=== PATIENT | male | born 1960 | race African-American/Black ===

== ENCOUNTER 2018-03-30 12:39 | Emergency (ER) | payer OTHER ==
[2018-03-30 13:12] LABS: #Basophils 0.1 thou/uL (0.0-0.2); #Eosinphils 0.1 thou/uL (0.0-0.7); #Lymphocytes 2.1 thou/uL (1.20-3.40); #Monocytes 0.5 thou/uL (0.11-0.59); #Neutrophils 2.6 thou/uL (1.40-6.50); %Eosinophils 1.7 % (0.0-10.0); %Lymphocytes 39.2 % (21.0-51.0); %Monocytes 9.5 % (0.0-10.0); %Neutrophils 48.6 % (42.0-75.0); Hemoglobin 14.4 g/dL (14.0-18.0); Mean Corpuscular HGB CONC 33.2 g/dL (32.0-36.0); Mean Corpuscular Hemoglobin 31.5 pg (27.0-31.0); Mean Corpuscular Volume 94.9 fl (80.0-94.0); Mean Platelet Volume 7.6 fL (7.4-10.4); Platelet Count 232 thou/uL (130-400); RBC Distribution Width 13.6 % (11.5-14.5); Red Blood Cell (RBC) Count 4.57 mill/uL (4.70-6.10); White Blood Cell (WBC) Count 5.4 thou/uL (4.8-10.8)
--- NOTE | 2018-03-30 13:34 | RAD ---
CHEST 1 VIEW: Date: 03/30/18 HISTORY: Chest pain. COMPARISON: 06/15/15. FINDINGS: Cardiac silhouette and pulmonary vasculature are unremarkable. Mediastinum is midline with aortic jeri cification. Calcified lesions within the left lung are stable. There is no confluent air space consol idation or evidence of pneumothorax. IMPRESSION: No active cardiopulmonary abnormalities are demonstrated. POS: [facility]
[2018-03-30 13:35] LABS: ALT (SGPT) 23 U/L (8-55); AST (SGOT) 21 U/L (5-34); Albumin 4.3 g/dL (3.5-5.0); Alkaline Phosphatase 43 U/L (40-150); Anion Gap 10 mmol/L (10-20); BUN (Urea Nitrogen) 16 mg/dL (8.4-25.7); Bilirubin, Total 0.4 mg/dL (0.2-1.2); Calc. Creatinine Clearance 0 mL/min (70-130); Calcium 9.2 mg/dL (7.8-10.44); Carbon Dioxide 27 mmol/L (22-29); Chloride 102 mmol/L (98-107); Estimated GFR-MDRD 86; Globulin 3.4 g/dL (2.4-3.5); Glucose 108 mg/dL (70-105); Potassium 4.5 mmol/L (3.5-5.1); Protein, Total 7.7 g/dL (6.0-8.3); Sodium 134 mmol/L (136-145)
[2018-03-30 13:37] LABS: CKMB 1.9 ng/mL (0-6.6); Troponin I Less than 0.010 ng/mL (< 0.028)
[2018-03-30] MEDS ORDERED: Diazepam 5 MG TAB ONE (13:58)
[2018-03-30] MEDS ORDERED: Ketorolac Tromethamine 30 MG/ML VIAL ONE (13:58)
--- NOTE | 2018-03-30 14:53 | RAD ---
LUMBAR SPINE 3 VIEWS: Date: 03/30/18 HISTORY: Low back pain. Right leg pain. COMPARISON: None. FINDINGS: There are five lumbar-type vertebral bodies. Vertebral body height is maintained. No fracture. 5 mm a nterolisthesis of L3 upon L4. No obvious spondylolysis. There are extensive degenerative changes of t he posterior elements at L3-L4, L4-L5, and L5-S1. Calcification in the posterior aspect of the distal at L4-L5. IMPRESSION: Extensive degenerative changes with extensive posterior element hypertrophy and Grade I anterolisthes is of L3 upon L4. Findings are presumed to be chronic. Nonemergent MRI can be performed. POS: [facility]
== END 2018-03-30 15:00 | disposition home or self-care (01) ==
LOC: ERS 12:39
DX: M54.16 Radiculopathy, lumbar region (principal); I10 Essential (primary) hypertension; I25.10 Atherosclerotic heart disease of native coronary artery without angina pectoris; F17.210 Nicotine dependence, cigarettes, uncomplicated; Z79.82 Long term (current) use of aspirin; Z79.899 Other long term (current) drug therapy
CPT/HCPCS: 36415; 71045; 72100; 80053; 82553; 84484; 85025; 93005; 96372; J1885

== ENCOUNTER 2018-07-24 13:41 | Outpatient (CLI) | payer OTHER | END 2018-07-24 13:42 | disposition home or self-care (01) | LOC: BICMRI 13:41 | PROVIDERS: ATTEND Neurological Surgery | DX: M54.16 Radiculopathy, lumbar region (principal); M48.061 Spinal stenosis, lumbar region without neurogenic claudication | CPT/HCPCS: 72148 ==